=== PATIENT | female | born 1955 | race Caucasian/White ===

== ENCOUNTER 2016-02-26 10:19 | Outpatient (CLI) | payer OTHER ==
[2015-04-07 09:19] VITALS: BP 149/71
[2016-02-26 11:01] LABS: eGFR (African) > 60; eGFR (Non-African) > 60
== END 2016-02-26 10:20 ==
LOC: LAB 10:19
PROVIDERS: ATTEND Family Medicine
DX: R74.8 Abnormal levels of other serum enzymes (principal); R73.9 Hyperglycemia, unspecified
CPT/HCPCS: 36415; 80053; 83036

== ENCOUNTER 2016-03-09 07:45 | Outpatient (CLI) | payer OTHER ==
[2015-04-07 09:19] VITALS: BP 149/71
--- NOTE | 2016-03-09 11:43 | Diagnostic Imaging Report ---
[facility] [address] [facility] [address] [address] Report Submission Date: Mar 09, 2016 8:40:35 AM RESIDENTIAL ADVISOR Patient Study Name: AYANNA BLACKWELL Date: Mar 09, 2016 8:07:44 AM RESIDENTIAL ADVISOR Modality Type: US Gender: F Description: US ABD LIMITED : 51 Institution: [facility] Physician MARTIN BRIDGES - ANIYAH Ultrasound of the upper abdomen CLINICAL HISTORY: Abnormal liver function tests. TECHNIQUE: Real-time sonography of the upper abdomen is performed in transverse and longitudinal views. FINDINGS: There are echogenic gallstones within the gallbladder that demonstrate acoustic shadowing. There is no gallbladder wall thickening or pericholecystic fluid. The common bile duct measures 3 mm in diameter. There is no intrahepatic ductal dilatation. Visualized pancreas and right kidney are unremarkable. IMPRESSION: Cholelithiasis. Electronically signed on Mar 09, 2016 8:40:35 AM RESIDENTIAL ADVISOR by: Ruben MCFADDEN
== END 2016-03-09 07:46 ==
LOC: RAD 07:45
PROVIDERS: ATTEND Family Medicine
DX: R74.8 Abnormal levels of other serum enzymes (principal)
CPT/HCPCS: 76705

== ENCOUNTER 2016-04-01 10:45 | Outpatient (CLI) | payer OTHER ==
[2015-04-07 09:19] VITALS: BP 149/71
== END 2016-04-01 10:46 ==
LOC: OUT 10:45
PROVIDERS: ATTEND Colon & Rectal Surgery
DX: R74.8 Abnormal levels of other serum enzymes (principal); K80.80 Other cholelithiasis without obstruction
CPT/HCPCS: 99213

== ENCOUNTER 2016-04-19 14:06 | Outpatient (CLI) | payer OTHER ==
[2015-04-07 09:19] VITALS: BP 149/71
--- NOTE | 2016-04-19 15:44 | Diagnostic Imaging Report ---
[facility] [address] [facility].[address] [address] Report Submission Date: Apr 19, 2016 3:27:04 PM CDT Patient Study Name: AYANNA BLACKWELL Date: Apr 19, 2016 2:11:46 PM CDT Modality Type: CR Gender: F Description: UPPER EXTREMITY : 51 Institution: [facility] Physician: BRYAN SAINI Right wrist 3 views Clinical history: Pain Mild osteoarthrosis of the right wrist is noted without visible fracture, dislocation or soft tissue calcifications. Mild osteopenia is noted. Impression: Mild osteoarthrosis with osteopenia Electronically signed on Apr 19, 2016 3:27:04 PM CDT by: Son MCFADDEN
== END 2016-04-19 14:07 ==
LOC: RAD 14:06
PROVIDERS: ATTEND Physician Assistant
DX: M25.531 Pain in right wrist (principal)
CPT/HCPCS: 73110

== ENCOUNTER 2017-02-02 09:36 | Outpatient (CLI) | payer OTHER ==
[2015-04-07 09:19] VITALS: BP 149/71
[2017-02-02 10:21] LABS: eGFR (African) > 60; eGFR (Non-African) > 60
== END 2017-02-02 09:45 ==
LOC: LAB 09:36
PROVIDERS: ATTEND Family Medicine
DX: Z00.00 Encounter for general adult medical examination without abnormal findings (principal)
CPT/HCPCS: 36415; 80053; 80061

== ENCOUNTER 2018-01-23 09:07 | Outpatient (CLI) | payer BC ==
[2015-04-07 09:19] VITALS: BP 149/71
== END 2018-01-23 09:12 | disposition home or self-care (01) ==
LOC: LAB 09:07
PROVIDERS: ATTEND Family Medicine
DX: Z13.6 Encounter for screening for cardiovascular disorders (principal)
CPT/HCPCS: 36415; 80061

== ENCOUNTER 2018-02-08 15:56 | Outpatient (CLI) | payer BC ==
[2015-04-07 09:19] VITALS: BP 149/71
--- NOTE | 2018-02-09 00:30 | Diagnostic Imaging Report ---
MARTIN BRIDGES [facility] [address] [facility] [address] [address] Report Submission Date: Feb 08, 2018 5:07:15 PM PREDATORY ANIMAL EXTERMINATOR Patient Study Name: AYANNA BLACKWELL Date: Feb 08, 2018 4:00:37 PM PREDATORY ANIMAL EXTERMINATOR Modality Type: DX Gender: F Description: UPPER EXTREMITY : 51 Institution: [facility] Physician: MARTIN BRIDGES Examination: Plain film right wrist History: PT STATES FALL ABOUT 2 YEARS AGO WITH CONTINUED PAIN IN WRIST (Hx) Comparison exams: None available Findings: 3 views of the right wrist demonstrates osteopenia. Articular degenerative changes. No suspicious cortical lucency. No soft tissue abnormality. Impression: Osteopenia and degenerative changes. No acute appearing osseous abnormality Electronically signed on Feb 08, 2018 5:07:15 PM PREDATORY ANIMAL EXTERMINATOR by: Charlie MCFADDEN
--- NOTE | 2018-02-09 00:32 | Diagnostic Imaging Report ---
MARTIN BRIDGES [facility] [address] [facility] [address] [place] [address]. [address] Report Submission Date: Feb 08, 2018 5:10:19 PM QUALITY ASSURANCE SUPERVISOR Patient Study Name: AYANNA BLACKWELL Date: Feb 08, 2018 4:08:32 PM QUALITY ASSURANCE SUPERVISOR Modality Type: DX Gender: F Description: PELVIS : 51 Institution: [facility] Physician: MARTIN BRIDGES Bilateral hips with AP pelvis, 3 images HISTORY Hip pain. FINDINGS No fracture, dislocation or abnormal bone production or destruction is identified. IMPRESSION Normal. Electronically signed on Feb 08, 2018 5:10:19 PM QUALITY ASSURANCE SUPERVISOR by: Carlos MCFADDEN
== END 2018-02-08 15:58 ==
LOC: RAD 15:56
PROVIDERS: ATTEND Family Medicine
DX: M25.531 Pain in right wrist (principal); M25.552 Pain in left hip; M25.551 Pain in right hip
CPT/HCPCS: 73110; 73521

== ENCOUNTER 2018-12-15 09:36 | Outpatient (CLI) | payer MEDICARE, OTHER ==
[2015-04-07 09:19] VITALS: BP 149/71
[2018-12-15 10:45] LABS: eGFR (Non-African) > 60
[2018-12-15 10:47] LABS: HDL 48 mg/dL (>40)
--- NOTE | 2018-12-16 12:46 | Diagnostic Imaging Report ---
PATIENT MR#: [id number] PATIENT PATIENT NAME: AYANNA BLACKWELL DATE OF : 1955 REFERRING PHYSICIAN: Elda Brown EXAM DATE: 12/15/2018 ACCESSION NUMBER: [id number] EXAM DESCRIPTION: DEXA DUAL ENERGY X-RAY ABSORPTIOMETRY (DXA) A DXA scan was performed on December 15, 2018 using a [employer] densitometer. IMPRESSION: Based on BMD diagnosis is consistent with osteopenia (based on WHO criteria). Fracture risk is modera te. Treatment is advised. Follow-up exam recommended December 2020. INDICATION: Postmenopausal, hydrocortisone usage. Technical Quality: Diagnostic RESULTS: Lumbar Spine The BMD measured in the L1-L4 region is 0.996 g/cm2 T-score -1.5 Total Hip The BMD measured at the total proximal femur is 0.727 g/cm2 T-score -2.2 Read by: Dr. Bronson Brown Transcribed by: Bronson Brown Transcribed Date: 12/16/2018 12:45:02 PM Electronically signed by: Dr. Bronson Brown Date signed: 12/16/2018 12:45:33 PM
== END 2018-12-15 09:46 ==
LOC: RAD 09:36
PROVIDERS: ATTEND Family Medicine
DX: Z00.00 Encounter for general adult medical examination without abnormal findings (principal); Z13.6 Encounter for screening for cardiovascular disorders
CPT/HCPCS: 36415; 77080; 80053; 80061; 93005